=== PATIENT | male | born 1970 | race Hispanic/Latino ===

== ENCOUNTER 2018-03-04 02:51 | Inpatient (IN) | payer SELFPAY ==
--- NOTE | 2018-03-04 03:16 | EDPHYS ---
Physician Documentation [facility] Name: Fransico Cueva Age: 47 yrs Sex: Male : 1970 Arrival Date: 03/04/2018 Time: 02:53 Bed 7 Private MD: NATALIE Physician Yonas Cuellar HPI: 03/04 03:10 This 47 yrs old Male presents to ER via Ambulatory with complaints of Rectal Pain. bing 03:10 This 47 yrs old Male presents to ER via Ambulatory with complaints of Rectal bing Pain. 03:10 The patient presents to the emergency department with cellulitis of the gluteal cleft bing and left gluteus herve, pain in the rectal area, that is moderate. Onset: The symptoms/episode began/occurred 3 day(s) ago. Context: the patient has no known special context relating to the rectal area complaint(s). Modifying factors: The symptoms are alleviated by remaining still, The symptoms are aggravated by bowel movement, movement, sitting position. Associate signs and symptoms: Pertinent positives: abdominal pain in the suprapubic area, right lower quadrant and left lower quadrant, fever. The patient has not experienced similar symptoms in the past. Historical: - Allergies: 03:11 No Known Allergies; ao - Home Meds: 03:11 None [Active]; ao - PMHx: 03:11 None; ao - PSHx: 03:11 None; ao - Immunization history:: Adult Immunizations up to date. - Social history:: Smoking status: Patient/guardian denies using tobacco, Patient/guardian denies using alcohol, IV drugs. - Ebola Screening: : Patient negative for fever greater than or equal to 101.5 degrees Fahrenheit, and additional compatible Ebola Virus Disease symptoms Patient denies exposure to infectious person Patient denies travel to an Ebola-affected area in the 21 days before illness onset. - Family history:: not pertinent. ROS: 03:10 Constitutional: Negative for fever, chills, and weight loss, Eyes: Negative for injury, bing pain, redness, and discharge, ENT: Negative for injury, pain, and discharge, Neck: Negative for injury, pain, and swelling, Cardiovascular: Negative for chest pain, palpitations, and edema, Respiratory: Negative for shortness of breath, cough, wheezing, and pleuritic chest pain, Abdomen/GI: Negative for abdominal pain, nausea, vomiting, diarrhea, and constipation, Back: Negative for injury and pain, : Negative for injury, bleeding, discharge, and swelling, MS/Extremity: Negative for injury and deformity, Neuro: Negative for headache, weakness, numbness, tingling, and seizure, Psych: Negative for depression, anxiety, suicide ideation, homicidal ideation, and hallucinations, Allergy/Immunology: Negative for hives, rash, and allergies, Endocrine: Negative for neck swelling, polydipsia, polyuria, polyphagia, and marked weight changes, Hematologic/Lymphatic: Negative for swollen nodes, abnormal bleeding, and unusual bruising. 03:10 Skin: Positive for erythema, swelling, of the gluteal cleft and left gluteus herve. Exam: 03:10 Constitutional: This is a well developed, well nourished patient who is awake, alert, bing and in no acute distress. Head/Face: Normocephalic, atraumatic. Eyes: Pupils equal round and reactive to light, extra-ocular motions intact. Lids and lashes normal. Conjunctiva and sclera are non-icteric and not injected. Cornea within normal limits. Periorbital areas with no swelling, redness, or edema. ENT: Nares patent. No nasal discharge, no septal abnormalities noted. Tympanic membranes are normal and external auditory canals are clear. Oropharynx with no redness, swelling, or masses, exudates, or evidence of obstruction, uvula midline. Mucous membranes moist. Neck: Trachea midline, no thyromegaly or masses palpated, and no cervical lymphadenopathy. Supple, full range of motion without nuchal rigidity, or vertebral point tenderness. No Meningismus. Chest/axilla: Normal chest wall appearance and motion. Nontender with no deformity. No lesions are appreciated. Cardiovascular: Regular rate and rhythm with a normal S1 and S2. No gallops, murmurs, or rubs. Normal PMI, no JVD. No pulse deficits. Respiratory: Lungs have equal breath sounds bilaterally, clear to auscultation and percussion. No rales, rhonchi or wheezes noted. No increased work of breathing, no retractions or nasal flaring. Abdomen/GI: Soft, non-tender, with normal bowel sounds. No distension or tympany. No guarding or rebound. No evidence of tenderness throughout. Back: No spinal tenderness. No costovertebral tenderness. Full range of motion. Male : Normal genitalia with no discharge or lesions. Skin: Warm, dry with normal turgor. Normal color with no rashes, no lesions, and no evidence of cellulitis. MS/ Extremity: Pulses equal, no cyanosis. Neurovascular intact. Full, normal range of motion. Neuro: Awake and alert, GCS 15, oriented to person, place, time, and situation. Cranial nerves II-XII grossly intact. Motor strength 5/5 in all extremities. Sensory grossly intact. Cerebellar exam normal. Normal gait. Psych: Awake, alert, with orientation to person, place and time. Behavior, mood, and affect are within normal limits. Vital Signs: 03:09 BP 183 / 116; Pulse 103; Resp 16; Temp 99.7(O); Pulse Ox 97% ; Weight 95.25 kg (R); ao Height 5 ft. 5 in. (165.10 cm) (R); Pain 10/10; 04:30 BP 175 / 98; Pulse 99; Resp 16; Pulse Ox 99% on R/A; Pain 0/10; ao 05:30 BP 178 / 108; Pulse 99; Resp 16; Pulse Ox 97% on R/A; Pain 4/10; ao 06:24 BP 171 / 106; Pulse 83; Resp 16; Pulse Ox 100% on R/A; Pain 6/10; ao 03:09 Body Mass Index 34.95 (95.25 kg, 165.10 cm) ao MDM: 02:58 Patient medically screened. [facility] 04:12 Data reviewed: vital signs, nurses notes, lab test result(s), EKG, radiologic studies, [facility] CT scan, plain films. 03/04 03:10 Order name: Basic Metabolic Panel; Complete Time: 05: [facility] 03/04 03:10 Order name: CBC with Diff; Complete Time: 05: [facility] 03/04 03:10 Order name: Ckmb; Complete Time: 05: [facility] 03/04 03:10 Order name: CPK; Complete Time: 05: [facility] 03/04 03:10 Order name: LFT's; Complete Time: 05: [facility] 03/04 03:10 Order name: Magnesium; Complete Time: 05: [facility] 03/04 03:10 Order name: NT PRO-BNP; Complete Time: 05: [facility] 03/04 03:10 Order name: PT-INR; Complete Time: 05:11 [facility] 03/04 03:10 Order name: Ptt, Activated; Complete Time: 05:11 [facility] 03/04 03:10 Order name: Troponin (emerg Dept Use Only); Complete Time: 05:11 [facility] 03/04 03:10 Order name: XRAY Chest (1 view) [facility] 03/04 03:10 Order name: Lipase; Complete Time: 05:11 [facility] 03/04 03:10 Order name: CT Abd/Pelvis - W/Contrast [facility] 03/04 08:12 Order name: CT EDNC 03/04 03:10 Order name: EKG; Complete Time: 03:11 [facility] 03/04 03:10 Order name: Cardiac monitoring; Complete Time: 03:40 [facility] 03/04 03:10 Order name: EKG - Nurse/Tech; Complete Time: 03:40 [facility] 03/04 03:10 Order name: IV Saline Lock; Complete Time: 03:40 [facility] 03/04 03:10 Order name: Labs collected and sent; Complete Time: 03:41 [facility] 03/04 03:10 Order name: O2 Per Protocol; Complete Time: 03:41 [facility] 03/04 03:10 Order name: O2 Sat Monitoring; Complete Time: 03:41 [facility] 03/04 03:21 Order name: CONS Physician Consult EDNC Administered Medications: 03:45 Drug: NS 0.9% 1000 ml Route: IV; Rate: 1 bolus; Site: right antecubital; ao 06:38 Follow up: IV Status: Completed infusion; IV Intake: 100ml ao 03:45 Drug: levofloxacin 750 mg Volume: 150 ml; Route: IVPB; Infused Over: 90 mins; Site: ao right antecubital; 06:40 Follow up: IV Status: Completed infusion; IV Intake: 150ml ao 03:56 Drug: Flagyl 500 mg Volume: 100 ml; Route: IVPB; Rate: 200 ml/hr; Infused Over: 30 ao mins; Site: right antecubital; 06:40 Follow up: IV Status: Completed infusion; IV Intake: 50ml ao 03:57 Drug: morphine 4 mg Route: IVP; Site: right antecubital; ao 06:37 Follow up: Response: No adverse reaction ao 03:57 Drug: Zofran 4 mg Route: IVP; Site: right antecubital; ao 06:37 Follow up: Response: No adverse reaction ao Disposition: 03/04/18 03:15 Hospitalization ordered by Joseph Briceño for Inpatient Admission. Preliminary diagnosis are Cutaneous abscess of buttock - left perirectal, Fever, unspecified, Type 2 diabetes mellitus, Essential (primary) hypertension. - Bed requested for Telemetry/MedSurg (Inpatient). - Status is Inpatient Admission. sv - Condition is Fair. - Problem is new. - Symptoms have improved. UTI on Admission? No Signatures: Dispatcher [employer] EDMS Blade Gonzalez rg2 Elise Adorno RN RN Yonas Machado MD MD cha Ortiz, Alex RN RN ao Corrections: (The following items were deleted from the chart) 03:34 03:15 Hospitalization Ordered by Joseph Briceño MD for Inpatient Admission. Preliminary rg2 diagnosis is Cutaneous abscess of buttock - left perirectal; Fever, unspecified. Bed requested for Telemetry/MedSurg (Inpatient). Status is Inpatient Admission. Condition is Fair. Problem is new. Symptoms have improved. UTI on Admission? No. bing 05:11 03:34 03/04/2018 03:15 Hospitalization Ordered by Joseph Briceño MD for Inpatient bing Admission. Preliminary diagnosis is Cutaneous abscess of buttock - left perirectal; Fever, unspecified. Bed requested for Telemetry/MedSurg (Inpatient). Status is Inpatient Admission. Condition is Fair. Problem is new. Symptoms have improved. UTI on Admission? No. rg2 05:12 05:11 03/04/2018 03:15 Hospitalization Ordered by Joseph Briceño MD for Inpatient bing Admission. Preliminary diagnosis is Cutaneous abscess of buttock - left perirectal; Fever, unspecified; Type 2 diabetes mellitus. Bed requested for Telemetry/MedSurg (Inpatient). Status is Inpatient Admission. Condition is Fair. Problem is new. Symptoms have improved. UTI on Admission? No. bing 08:21 05:12 03/04/2018 03:15 Hospitalization Ordered by Joseph Briceño MD for Inpatient sv Admission. Preliminary diagnosis is Cutaneous abscess of buttock - left perirectal; Fever, unspecified; Type 2 diabetes mellitus; Essential (primary) hypertension. Bed requested for Telemetry/MedSurg (Inpatient). Status is Inpatient Admission. Condition is Fair. Problem is new. Symptoms have improved. UTI on Admission? No. bing
--- NOTE | 2018-03-04 03:16 | ER ---
Nurse's Notes [facility] Name: Fransico Cueva Age: 47 yrs Sex: Male : 1970 Arrival Date: 03/04/2018 Time: 02:53 Bed 7 Private MD: Diagnosis: Cutaneous abscess of buttock-left perirectal;Fever, unspecified;Type 2 diabetes mellitus;Essential (primary) hypertension Presentation: 03/04 03:06 Presenting complaint: Patient states: Rectal pain that started two days ago. Patient ao states that pain is moving towards the left side of the abdomen. Pain describes as pressure in 10/10 pain scale. Transition of care: patient was not received from another setting of care. Onset of symptoms was March 03, 2018 at 06:00. Risk Assessment: Do you want to hurt yourself or someone else? Patient reports no desire to harm self or others. Initial Sepsis Screen: Does the patient meet any 2 criteria? No. Patient's initial sepsis screen is negative. Does the patient have a suspected source of infection? No. Patient's initial sepsis screen is negative. Care prior to arrival: None. 03:06 Method Of Arrival: Ambulatory ao 03:06 Acuity: [place] 3 ao Historical: - Allergies: 03:11 No Known Allergies; ao - Home Meds: 03:11 None [Active]; ao - PMHx: 03:11 None; ao - PSHx: 03:11 None; ao - Immunization history:: Adult Immunizations up to date. - Social history:: Smoking status: Patient/guardian denies using tobacco, Patient/guardian denies using alcohol, IV drugs. - Ebola Screening: : Patient negative for fever greater than or equal to 101.5 degrees Fahrenheit, and additional compatible Ebola Virus Disease symptoms Patient denies exposure to infectious person Patient denies travel to an Ebola-affected area in the 21 days before illness onset. - Family history:: not pertinent. Screenin:00 Abuse screen: Denies threats or abuse. Denies injuries from another. Nutritional ao screening: No deficits noted. Tuberculosis screening: No symptoms or risk factors identified. Fall Risk None identified. Assessment: 03:05 General: Appears in no apparent distress. comfortable, Behavior is calm, cooperative, ao appropriate for age. Pain: Complains of pain in buttocks Pain radiates to Left side and abdoment. Neuro: Level of Consciousness is awake, alert, obeys commands, Oriented to person, place, time, situation, Appropriate for age Moves all extremities. Speech is normal, Facial symmetry appears normal. Cardiovascular: Capillary refill < 3 seconds Patient's skin is warm and dry. Respiratory: Airway is patent Respiratory effort is even, unlabored, Respiratory pattern is regular, symmetrical. GI: Abdomen is distended, obese. GI: Reports nausea, Rectal pain. : No signs and/or symptoms were reported regarding the genitourinary system. EENT: No signs and/or symptoms were reported regarding the EENT system. Derm: No signs and/or symptoms reported regarding the dermatologic system. Musculoskeletal: Circulation, motion, and sensation intact. Range of motion:. 04:15 Reassessment: Patient appears in no apparent distress at this time. Patient and/or ao family updated on plan of care and expected duration. Pain level reassessed. Patient is alert, oriented x 3, equal unlabored respirations, skin warm/dry/pink. 04:30 Reassessment: Patient was done with contrast. CT was notified. ao 05:34 Reassessment: Patient appears in no apparent distress at this time. Patient and/or ao family updated on plan of care and expected duration. Pain level reassessed. Patient is alert, oriented x 3, equal unlabored respirations, skin warm/dry/pink. Patient to be taken to her room after CT is clear as ordered by Dr Cuellar. 06:24 Reassessment: Patient appears in no apparent distress at this time. Patient and/or ao family updated on plan of care and expected duration. Pain level reassessed. Patient is alert, oriented x 3, equal unlabored respirations, skin warm/dry/pink. Waiting on CT report to called report. Vital Signs: 03:09 BP 183 / 116; Pulse 103; Resp 16; Temp 99.7(O); Pulse Ox 97% ; Weight 95.25 kg (R); ao Height 5 ft. 5 in. (165.10 cm) (R); Pain 10/10; 04:30 BP 175 / 98; Pulse 99; Resp 16; Pulse Ox 99% on R/A; Pain 0/10; ao 05:30 BP 178 / 108; Pulse 99; Resp 16; Pulse Ox 97% on R/A; Pain 4/10; ao 06:24 BP 171 / 106; Pulse 83; Resp 16; Pulse Ox 100% on R/A; Pain 6/10; ao 03:09 Body Mass Index 34.95 (95.25 kg, 165.10 cm) ao ED Course: 02:53 Patient arrived in ED. ds1 02:58 Yonas Cuellar MD is Attending Physician. bing 03:05 Silvino Crenshaw RN is Primary Nurse. ao 03:09 Triage completed. ao 03:10 Arm band placed on right wrist. Patient placed in an exam room, on a stretcher, on ao pulse oximetry, Patient notified of wait time. 03:14 Joseph Briceño MD is Hospitalizing Provider. bing 03:19 X-ray completed. Portable x-ray completed in exam room. Patient tolerated procedure kw well. 03:20 XRAY Chest (1 view) In Process Unspecified. EDMS 03:45 Inserted saline lock: 20 gauge in right antecubital area, using aseptic technique. ao Blood collected. 06:14 CT completed. Patient tolerated procedure well. Patient moved to CT via wheelchair. Patient moved back from CT. 07:05 Patient has correct armband on for positive identification. Report given to Casper Olivares RN. Report has been called. Patient to be taken to his room after CT report in the ED. 07:06 No provider procedures requiring assistance completed. Patient admitted, IV remains in ao place. Administered Medications: 03:45 Drug: NS 0.9% 1000 ml Route: IV; Rate: 1 bolus; Site: right antecubital; ao 06:38 Follow up: IV Status: Completed infusion; IV Intake: 100ml ao 03:45 Drug: levofloxacin 750 mg Volume: 150 ml; Route: IVPB; Infused Over: 90 mins; Site: ao right antecubital; 06:40 Follow up: IV Status: Completed infusion; IV Intake: 150ml ao 03:56 Drug: Flagyl 500 mg Volume: 100 ml; Route: IVPB; Rate: 200 ml/hr; Infused Over: 30 ao mins; Site: right antecubital; 06:40 Follow up: IV Status: Completed infusion; IV Intake: 50ml ao 03:57 Drug: morphine 4 mg Route: IVP; Site: right antecubital; ao 06:37 Follow up: Response: No adverse reaction ao 03:57 Drug: Zofran 4 mg Route: IVP; Site: right antecubital; ao 06:37 Follow up: Response: No adverse reaction ao Intake: 06:38 IV: 100ml; Total: 100ml. ao 06:40 IV: 150ml; Total: 250ml. ao 06:40 IV: 50ml; Total: 300ml. ao Outcome: 03:15 Decision to Hospitalize by Provider. bing 07:07 Admitted to Tele accompanied by tech, room 428, with oxygen, with chart, Report called ao to LUCRETIA Caba 07:07 Condition: stable 07:07 Instructed on the need for admit. 08:21 Patient left the ED. sv Signatures: Dispatcher [employer] Elise Boo RN RN Yonas Machado MD MD cha Hagler, Ervin eh Sanford, Crystal ds1 Angelica Vaca Alex, RN RN ao
[2018-03-04] MEDS ORDERED: MORPHINE 4 MG/ML SYR ONE ×2 (03:50→06:47)
[2018-03-04] MEDS ORDERED: NA CHLORIDE 0.9% 1,000 ML ONE (03:50)
[2018-03-04] MEDS ORDERED: Levofloxacin 750mg IV 750 MG/150 ML BAG IV ONE (03:50)
[2018-03-04] MEDS ORDERED: METRONIDAZOLE 500mg IVPB 500 MG/100 ML BAG IV ONE ×3 (03:50→11:15)
[2018-03-04] MEDS ORDERED: ONDANSETRON 4 MG/2 ML VIAL ONE (03:50)
[2018-03-04 04:08] LABS: Absolute Lymphocytes (CBC) 2.5 K/uL (0.7-4.9); Absolute Monocytes 0.9 K/uL (0.1-1.3); Absolute Neutrophil 9.1 K/uL (1.8-8.0); Basophils % 0.4 % (0-1.3); Eosinophils % 0.5 % (0-4.4); Hematocrit 46.8 % (39.6-49.0); Lymphocytes % 19.7 % (15.3-44.8); MCH 30.6 pg (27.0-35.0); MCV 87.5 fL (80-100); MPV 8.6 fL (7.6-11.3); Monocytes % 7.1 % (3.3-12.3); RBC Red Blood Cell Count 5.35 M/uL (4.33-5.43)
[2018-03-04 04:29] LABS: Bilirubin Direct 0.2 mg/dL (0-0.2); Bilirubin Total 0.9 mg/dL (0.2-1.0); CKMB Creatine Kinase MB 1.2 ng/mL (0.3-3.6); Potassium 3.6 mmol/L (3.5-5.1); Protein, Total 8.2 g/dL (6.4-8.2)
[2018-03-04] MEDS ORDERED: D50W 25 GM/50 ML SYRINGE IV PRN (05:30)
[2018-03-04] MEDS ORDERED: GLUCAGON 1 MG/VIAL IM PRN (05:30)
--- NOTE | 2018-03-04 05:41 | P.HP ---
Certification for Inpatient Patient admitted to: Inpatient With expected LOS: >2 Midnights Practitioner: I am a practitioner with admitting privileges, knowledge of patient current condition, hospital course, and medical plan of care. Services: Services provided to patient in accordance with Admission requirements found in Title 42 Section 412.3 of the Code of Federal Regulations Patient History Date of Service: 03/04/18 Reason for admission: perirectal abscess History of Present Illness: Mr Oscar Cueva is a 47 years old male with history of obesity, who start about 3 days ago with in perianal area. He noticed a bump in his left perianal area which has been increasing in size. His pain is constant, 9/10 of intensity. He states that has had subjective fever. He did not noticed any drainage yet. He has never had this problem before. Lab work remarkable for leukocytosis 12.7K, Temp 99.7F, HR 103, BP 183/116. Home medications list reviewed: Yes - Past Medical/Surgical History -: obesity Past Surgical History: Reviewed- Non-Contributory - Family History Family History: Reviewed- Non-Contributory - Social History Smoking Status: Never smoker Alcohol use: Yes CD- Drugs: No Place of Residence: Home Review of Systems 10-point ROS is otherwise unremarkable Physical Examination - Physical Exam General: Alert, In no apparent distress HEENT: Atraumatic, PERRLA, Mucous membr. moist/pink, EOMI, Sclerae nonicteric Neck: Supple, 2+ carotid pulse no bruit, No LAD, Without JVD or thyroid abnormality Respiratory: Clear to auscultation bilaterally, Normal air movement Cardiovascular: Regular rate/rhythm, Normal S1 S2 Gastrointestinal: Normal bowel sounds, No tenderness Musculoskeletal: No tenderness Integumentary: No rashes Neurological: Normal gait, Normal speech, Normal strength at 5/5 x4 extr, Normal tone, Normal affect Lymphatics: No axilla or inguinal lymphadenopathy Male Exam - Male Exam Anus & perineum: Other (there is a indurated area, painful to palpate on his left perianal region.) Assessment and Plan - Problems (Diagnosis) (1) Perianal abscess Current Visit: Yes Status: Acute (2) HTN (hypertension) Current Visit: Yes Status: Acute Qualifiers: Hypertension type: unspecified Qualified Code(s): I10 - Essential (primary ) hypertension (3) Obesity Current Visit: Yes Status: Acute Qualifiers: Obesity type: unspecified obesity type Obesity classification: unspecified obesity classification Serious obesity comorbidity presence: unspecified whether serious comorbidity present Qualified Code(s): E66.9 - Obesity, unspecified - Plan The patient will be admitted to the hospital due to perianal abscess. CT pelvic area is still pending. Will start empiric antibiotic treatment, consult Surgery team. Will keep NPO in case he needs surgical procedure this morning. - Advance Directives Does patient have a Living Will: No Does patient have a Durable POA for Healthcare: No - Code Status/Comfort Care Code Status Assessed: Yes Code Status: Full Code
[2018-03-04] MEDS ORDERED: Morphine 2 MG/2 ML SYR IV PRN (06:31)
[2018-03-04] MEDS ORDERED: MORPHINE 4 MG/ML SYR IV PRN (07:26)
[2018-03-04] MEDS: INSULIN -REGULAR HUMAN 50 UNIT/0.5 ML ML SQ SCH ×4 (07:30→21:09)
--- NOTE | 2018-03-04 08:09 | P.PN ---
Subjective Date of Service: 03/04/18 Primary Care Provider: none Chief Complaint: perirectal abscess Subjective: Other (Patient doing well this time. Pain well controlled) Physical Examination - Physical Exam General: Alert, In no apparent distress, Oriented x3, Cooperative HEENT: Atraumatic Neck: Supple Respiratory: Clear to auscultation bilaterally, Normal air movement Cardiovascular: Normal pulses, Regular rate/rhythm Gastrointestinal: Normal bowel sounds, Non-distended, No masses, No rebound, No guarding Musculoskeletal: No tenderness, No warmth Integumentary: Other (Induration noted to the left rectal area to the buttocks.) Neurological: Normal speech, Normal strength at 5/5 x4 extr, Normal tone, Normal affect - Studies Medications List Reviewed: Yes Assessment & Plan - Problems (Diagnosis) (1) Diabetes mellitus Current Visit: Yes Status: Acute Plan: Patient with new diagnosis of diabetes. Will check A1c. Will provide sliding scale. Qualifiers: Diabetes mellitus type: type 2 Diabetes mellitus prison insulin use: without prison use Diabetes mellitus complication status: with skin complications Diabetes mellitus complication detail: with other skin complication Qualified Code(s): E11.628 - Type 2 diabetes mellitus with other skin complications (2) HTN (hypertension) Current Visit: Yes Status: Acute Plan: New diagnosis of hypertension. Lisinopril started. Will provide medication IV as needed. Will adjust medication for better control. Qualifiers: Hypertension type: unspecified Qualified Code(s): I10 - Essential (primary ) hypertension (3) Obesity Current Visit: Yes Status: Chronic Plan: Will calculate BMI and address lifestyle modification education. Qualifiers: Obesity type: unspecified obesity type Obesity classification: unspecified obesity classification Serious obesity comorbidity presence: unspecified whether serious comorbidity present Qualified Code(s): E66.9 - Obesity, unspecified (4) Perianal abscess Current Visit: Yes Status: Acute Plan: CT scan shows perianal abscess. Spoke with surgery. Patient be taken to the OR for debridement. Patient on Levaquin and vancomycin. Will check pro calcitonin level. Cultures will be obtained. Pharmacy to adjust medication. Discharge Plan: Home Plan to discharge in: Greater than 2 days - Code Status/Comfort Care Code Status Assessed: Yes (Patient full code.) Time Spent Managing Pts Care (In Minutes): 55
--- NOTE | 2018-03-04 08:11 | RAD REPORT ---
EXAM DESCRIPTION: CTAbdomen Pelvis W Contrast - 03/04/2018 6:17 am CLINICAL HISTORY: Abdominal pain. ABD PAIN COMPARISON: No comparisons TECHNIQUE: Biphasic CT imaging of the abdomen and pelvis was performed with 100 ml non-ionic IV cont rast. All CT scans are performed using dose optimization technique as appropriate and may include automated exposure control or mA/KV adjustment according to patient size. FINDINGS: The lung bases are clear. Diffuse fatty liver infiltration is seen. No focal lesion is detected. No intrahepatic biliary dilata tion. The spleen, pancreas, adrenal glands and kidneys show no acute process. Small nonobstructing le ft renal calculus. No bowel obstruction, free air, free fluid or abscess. The appendix is normal. Left thick-walled per irectal abscess is identified with the central fluid component measuring 22 x 16 mm. Skin thickening and subcutaneous fat stranding is present involving the left buttock region. A few mildly prominent l ymph nodes in both inguinal regions seen. No suspicious bony findings. IMPRESSION: Thick walled left perirectal abscess is identified (22 x 16 mm). Punctate left renal stone without hydronephrosis. Fatty liver.
--- NOTE | 2018-03-04 08:36 | EKG ---
Test Date: 2018-03-04 Test Time: 03:36:00 Fund Raiser: JEANINE MEASUREMENT RESULTS: Intervals: Rate: 95 NE: 162 QRSD: 78 QT: 352 QTc: 442 [place]: P: 28 NE: 162 QRS: -20 T: 69 INTERPRETIVE STATEMENTS: Normal sinus rhythm Normal ECG No previous ECG available for comparison Electronically Signed On 03-04-18 08:35:06 CDT by Yinka Mendiola
[2018-03-04] MEDS ORDERED: TRAMADOL HCL 50 MG TAB PO PRN (08:37)
[2018-03-04] MEDS ORDERED: ONDANSETRON 4 MG/2 ML VIAL IV PRN (08:37)
[2018-03-04] MEDS ORDERED: ACETAMINOPHEN 500 MG TAB PO PRN (08:37)
[2018-03-04] MEDS ORDERED: METOPROLOL TARTRATE 5 MG/5 ML INJ IV PRN (08:37)
--- NOTE | 2018-03-04 08:59 | RAD REPORT ---
EXAM DESCRIPTION: RAD - Chest Single View - 03/04/2018 3:25 am CLINICAL HISTORY: COUGH Chest pain. COMPARISON: No comparisons FINDINGS: Portable technique limits examination quality. The lungs are grossly clear. The heart is normal in size. No displaced fractures. IMPRESSION: No acute intrathoracic process suspected.
[2018-03-04] MEDS ORDERED: LISINOPRIL 10 MG TAB PO SCH ×2 (09:00→21:00)
[2018-03-04 09:49] LABS: Thyroid Stimulating Hormone 1.88 uIU/mL (0.36-3.74)
[2018-03-04] MEDS: VANCOMYCIN 1.75 GM in NA CHLORIDE 0.9% 500 ML IVPB SCH ×3 (10:00→23:24)
[2018-03-04] MEDS ORDERED: LIDOCAINE 1% MPF 5 ML VIAL ONE (11:08)
[2018-03-04] MEDS ORDERED: FENTANYL CITR 100 MCG/2 ML ONE ×2 (11:08→11:50)
[2018-03-04] MEDS ORDERED: PROPOFOL 200 MG/20 ML VIAL IV ONE (11:08)
[2018-03-04] MEDS ORDERED: MIDAZOLAM HCL 2 MG/2 ML INJ ONE (11:08)
[2018-03-04] MEDS ORDERED: CEFOXITIN/SWI 1gm 1 GM/10 ML SYR IV ONE (11:15)
[2018-03-04] MEDS ORDERED: HYDRALAZINE HCL 20 MG/ML VIAL ONE (11:49)
[2018-03-04] MEDS ORDERED: NS 0.9% VIAL 10 ML ONE (11:51)
[2018-03-04] MEDS ORDERED: ONDANSETRON HCL 40 MG/20 ML VIAL ONE (11:52)
[2018-03-04] MEDS ORDERED: KETOROLAC 30 MG/ML INJ ONE (11:52)
--- NOTE | 2018-03-04 11:52 | P.OP ---
Preoperative diagnosis: Left Sweta-rectal Abscess Postoperative diagnosis: same Primary procedure: EUA, Rigid Procto, I and D and Debridement Left Sweta-rectal Abscess Anesthesia: gen Estimated blood loss: min Specimen: pus Findings: as above Complications: None Transferred to: Recovery Room Condition: Good
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
[2018-03-04] MEDS: MEPERIDINE HCL 50 MG/ML AMP ONE ×2 (12:44→12:50)
[2018-03-04 15:32] VITALS: BMI 33.8
[2018-03-04] MEDS: METFORMIN HCL 500 MG TAB PO SCH (16:35)
[2018-03-04] MEDS ORDERED: PNEUMOCOCCAL VACCINE 0.5 ML IMVAC ONE (17:00)
[2018-03-04] MEDS ORDERED: POTASSIUM 25 MEQ EFFERV TAB PO ONE (18:30)
[2018-03-04] MEDS: NA CHLORIDE 0.9% 1,000 ML IV SCH ×3 (18:37→23:32)
[2018-03-04] MEDS ORDERED: CARVEDILOL 6.25 MG TAB PO SCH (21:00)
[2018-03-04] MEDS ORDERED: INSULIN DETEMIR 100 UNIT/1 ML INSULIN SQ SCH (21:00)
[2018-03-04] MEDS ORDERED: ATORVASTATIN 40 MG TAB PO SCH (21:00)
--- NOTE | 2018-03-04 22:44 | OP ---
Date of Procedure: 03/04/2018 Surgeon: Yasmany Up MD Preoperative Diagnosis: Left perirectal abscess. Postoperative Diagnosis: Left perirectal abscess. Procedure: Exam under anesthesia, rigid proctoscopy, incision and drainage, and debridement of left perirectal abscess. Estimated Blood Loss: Minimal. Specimen: Pus. Finding: As above. Anesthesia: General. Complications: None. Disposition: The patient tolerated the procedure in stable condition and to Recovery in good general condition. Procedure In Detail: The patient was brought to the OR and placed in supine position. General anest hesia was begun. The patient placed in lithotomy position. Prepped and draped in usual sterile fash ion. Exam under anesthesia revealed a tender fluctuant mass in the left posterior perirectal area, a nd rigid proctoscopy revealed lot of stool, I was unable to see any fistula or any other evidence of disease. Then patient was injected with Marcaine 0.5% and 3 cm incision was made over the most fluct uant part. Pus was evacuated. Loculation was broken up. Necrotic tissue debrided. Wound irrigated. Bleeding controlled with cautery. Wet-to-dry normal saline dressing change applied. The patient tolerated the procedure in stable condition and taken to Recovery in goo d general condition. /MODL Voice ID: [id number] Report ID: [id number]
[2018-03-05 02:52] VITALS: O2SAT 95
[2018-03-05] MEDS: HYDROCODONE/APAP 7.5/325 MG TAB PO PRN ×2 (03:40→10:40)
[2018-03-05] MEDS ORDERED: Levofloxacin 750mg IV 750 MG/150 ML BAG IV SCH (04:00)
[2018-03-05 04:33] LABS: Absolute Monocytes 1.1 K/uL (0.1-1.3); Basophils % 0.2 % (0-1.3); Eosinophils % 0.6 % (0-4.4); Hematocrit 38.6 % (39.6-49.0); Lymphocytes % 15.1 % (15.3-44.8); MCH 30.7 pg (27.0-35.0); MCV 87.7 fL (80-100); MPV 8.5 fL (7.6-11.3); Monocytes % 8.7 % (3.3-12.3)
[2018-03-05] MEDS: NA CHLORIDE 0.9% 1,000 ML IV SCH (04:37)
[2018-03-05 04:58] LABS: BUN Blood Urea Nitrogen 15 mg/dL (7-18); Bicarbonate 27 mmol/L (21-32); Glucose Level 152 mg/dL (74-106); Magnesium 1.7 mg/dL (1.8-2.4); Potassium 3.5 mmol/L (3.5-5.1); Sodium Level 137 mmol/L (136-145)
[2018-03-05] MEDS ORDERED: POTASSIUM CL SA 10 MEQ TAB PO ONE (06:04)
[2018-03-05] MEDS ORDERED: Magnesium Sulfate 1gm IVPB 1 GM/50 ML BAG IV ONE ×2 (06:05→06:16)
[2018-03-05] MEDS ORDERED: PANTOPRAZOLE 40MG TABLET PO SCH (06:30)
[2018-03-05] MEDS: INSULIN -REGULAR HUMAN 50 UNIT/0.5 ML ML SQ SCH ×2 (07:30→12:12)
[2018-03-05] MEDS: METFORMIN HCL 500 MG TAB PO SCH (08:29)
[2018-03-05] MEDS: CARVEDILOL 3.125 MG TAB PO SCH ×2 (08:30→12:13)
[2018-03-05] MEDS: VANCOMYCIN 1.75 GM in NA CHLORIDE 0.9% 500 ML IVPB SCH (10:17)
[2018-03-05 12:07] VITALS: BP 141/73; TEMP 98.3
--- NOTE | 2018-03-05 12:36 | P.DS ---
Admission Date: 03/04/18 Discharge Date: 03/05/18 Primary Care Provider: none Disposition: ROUTINE DISCHARGE Discharge Condition: GOOD Reason for Admission: perirectal abscess Consultations: Surgery-Dr. Up Procedures: CT scan: COMPARISON: No comparisons TECHNIQUE: Biphasic CT imaging of the abdomen and pelvis was performed with 100 ml non-ionic IV contrast. All CT scans are performed using dose optimization technique as appropriate and may include automated exposure control or mA/KV adjustment according to patient size. FINDINGS: The lung bases are clear. Diffuse fatty liver infiltration is seen. No focal lesion is detected. No intrahepatic biliary dilatation. The spleen, pancreas, adrenal glands and kidneys show no acute process. Small nonobstructing left renal calculus. No bowel obstruction, free air, free fluid or abscess. The appendix is normal. Left thick-walled perirectal abscess is identified with the central fluid component measuring 22 x 16 mm. Skin thickening and subcutaneous fat stranding is present involving the left buttock region. A few mildly prominent lymph nodes in both inguinal regions seen. No suspicious bony findings. IMPRESSION: Thick walled left perirectal abscess is identified (22 x 16 mm). Punctate left renal stone without hydronephrosis. Fatty liver. Surgery: Date of Procedure: 03/04/2018 Surgeon: Yasmany Up MD Preoperative Diagnosis: Left perirectal abscess. Postoperative Diagnosis: Left perirectal abscess. Procedure: Exam under anesthesia, rigid proctoscopy, incision and drainage, and debridement of left perirectal abscess. Estimated Blood Loss: Minimal. Specimen: Pus. Finding: As above. Anesthesia: General. Complications: None. - Problems (1) Diabetes mellitus Onset Date: 03/04/18 Current Visit: Yes Status: Acute Qualifiers: Diabetes mellitus type: type 2 Diabetes mellitus selling specialist insulin use: without mcc use Diabetes mellitus complication status: with skin complications Diabetes mellitus complication detail: with other skin complication Qualified Code(s): E11.628 - Type 2 diabetes mellitus with other skin complications (2) HTN (hypertension) Onset Date: 03/04/18 Current Visit: Yes Status: Acute Qualifiers: Hypertension type: essential hypertension Qualified Code(s): I10 - Essential (primary) hypertension (3) Obesity Onset Date: 03/04/18 Current Visit: Yes Status: Chronic Qualifiers: Obesity type: unspecified obesity type Obesity classification: adult class 1 (BMI 30 - 34.9) Serious obesity comorbidity presence: with serious comorbidity Body mass index: BMI 30.0-30.9 Qualified Code(s): E66.9 - Obesity, unspecified; Z68.30 - Body mass index (BMI) 30.0-30.9, adult (4) Abscess, perirectal Current Visit: Yes Status: Acute (5) Renal calculi Current Visit: Yes Status: Chronic Brief History of Present Illness: 47-year-old male presented with left rectal pain. Patient had erythema to the left buttocks region. Patient evaluated in emergency room. Patient found to have left perirectal abscess, confirmed on CT. Patient was admitted for treatment. Surgery consulted. Hospital Course: During the course of his stay patient was evaluated by surgery for left perirectal abscess. CT scan showed left perirectal abscess about 22 x 16 mm in size. Patient had incision, drainage and debridement of the abscess. Patient tolerated procedure well. No complications noted. So far cultures are negative. Patient will be discharged home to continue with wound care. Patient is to clean wound twice daily with normal saline. Patient is to pack the area with gauze and cover with gauze. At discharge he will continue with Cipro 500 mg 1 pill twice daily and Flagyl 500 mg 1 pill 3 times a day for 10 5th. Patient will follow up with surgery in 1 week to monitor his care. Prior to discharge family will be taught to help with dressing changes. A limited supply of tramadol 50 mg 1 pill 3 times a day as needed for pain will be provided. Patient was found to have new diagnosis of diabetes. Hemoglobin A1c 10.2. Patient will require strict lifestyle modification education. The patient understands. At discharge patient will continue with Glucophage 1000 mg 1 pill twice daily. Recommendation is to maintain blood sugars less 140 fasting and less than 200 after meals. Further adjustment can be done by his PCP. Patient will be provided a list of PCPs in the area so that he can establish care and continue to monitor his diabetes. Patient also found to have hypertension. Blood pressure stable with medication. At discharge he will continue with carvedilol 3.25 mg 1 pill twice daily and lisinopril 10 mg daily. Recommendation is to maintain blood pressures less 150/80. Further adjustment can be done by his PCP. Patient also found to have hyperlipidemia. LDL 176. At discharge he will continue with Lipitor 40 mg daily. This can be further monitored and addressed by his PCP. Patient may continue with aspirin 81 mg daily. Vital Signs/Physical Exam: Temp Pulse Resp BP Pulse Ox 98.3 F 71 18 141/73 H 98 03/05/18 12:00 03/05/18 12:13 03/05/18 12:00 03/05/18 12:13 03/05/18 12:00 General: Alert, In no apparent distress, Oriented x3, Cooperative HEENT: Atraumatic Neck: Supple Respiratory: Clear to auscultation bilaterally, Normal air movement Cardiovascular: Normal pulses, Regular rate/rhythm Gastrointestinal: Normal bowel sounds, Soft and benign, Non-distended, No tenderness, No masses, No rebound, No guarding Musculoskeletal: No erythema, No tenderness, No warmth Integumentary: Other (Less erythema to the left rectal region. Packing in place ) Neurological: Normal speech, Normal strength at 5/5 x4 extr, Normal tone Laboratory Data at Discharge: WBC 13.2 K/uL (4.3-10.9) H 03/05/18 03:50 Hgb 13.5 g/dL (13.6-17.9) L D 03/05/18 03:50 Hct 38.6 % (39.6-49.0) L D 03/05/18 03:50 Plt Count 221 K/uL (152-406) 03/05/18 03:50 PT 11.8 SECONDS (9.5-12.5) 03/04/18 03:40 INR 1.00 03/04/18 03:40 APTT 32.8 SECONDS (24.3-36.9) 03/04/18 03:40 Sodium 137 mmol/L (136-145) 03/05/18 03:50 Potassium 3.5 mmol/L (3.5-5.1) 03/05/18 03:50 BUN 15 mg/dL (7-18) 03/05/18 03:50 Creatinine 0.90 mg/dL (0.55-1.3) 03/05/18 03:50 Glucose 152 mg/dL (74-106) H 03/05/18 03:50 Magnesium 1.7 mg/dL (1.8-2.4) L 03/05/18 03:50 Total Bilirubin 0.9 mg/dL (0.2-1.0) 03/04/18 03:40 AST 18 U/L (15-37) 03/04/18 03:40 ALT 56 U/L (12-78) 03/04/18 03:40 Alkaline Phosphatase 129 U/L (45-117) H 03/04/18 03:40 Triglycerides 145 mg/dL (<150) 03/04/18 09:04 Cholesterol 245 mg/dL (<200) H 03/04/18 09:04 HDL Cholesterol 40 mg/dL (40-60) 03/04/18 09:04 Cholesterol/HDL Ratio 6.13 03/04/18 09:04 Lipase 176 U/L (73-393) 03/04/18 03:40 Home Medications: Atorvastatin Calcium [Lipitor] 40 mg PO BEDTIME #30 tab 03/05/18 Carvedilol [Coreg*] 3.125 mg PO BID #60 tab 03/05/18 Ciprofloxacin HCl [Cipro 500 MG Tablet] 500 mg PO BID #20 tab 03/05/18 Metformin HCl 1,000 mg PO BID #60 tablet 03/05/18 Tramadol HCl [Ultram] 50 mg PO TID PRN #15 tablet 03/05/18 metroNIDAZOLE [Flagyl] 500 mg PO Q8H #30 tablet 03/05/18 New Medications: Atorvastatin Calcium [Lipitor] 40 mg PO BEDTIME #30 tab Carvedilol [Coreg*] 3.125 mg PO BID #60 tab Ciprofloxacin HCl [Cipro 500 MG Tablet] 500 mg PO BID #20 tab Metformin HCl 1,000 mg PO BID #60 tablet metroNIDAZOLE [Flagyl] 500 mg PO Q8H #30 tablet Tramadol HCl [Ultram] 50 mg PO TID PRN #15 tablet PRN Reason: Pain Patient Discharge Instructions: 1. Patient will need a follow up with a PCP in the area to establish care and follow up this hospitalization. 2. Patient presented with left perirectal abscess. Patient is seen by surgery. Patient had incision, drainage and debridement of the abscess. Patient tolerated procedure well. No complications noted. So far cultures are negative. Patient will be discharged home to continue with wound care as per surgery. Patient will continue with Sitz bath. Patient is to clean wound twice daily with normal saline. Patient is to pack the area with gauze and cover with gauze. At discharge he will continue with Cipro 500 mg 1 pill twice daily and Flagyl 500 mg 1 pill 3 times a day for 10 days. Patient will follow up with surgery in 1 week to monitor his care. Prior to discharge family will be taught to help with dressing changes. A limited supply of tramadol 50 mg 1 pill 3 times a day as needed for pain will be provided. 3. Patient was found to have new diagnosis of diabetes. Hemoglobin A1c 10.2. Patient will require strict lifestyle modification education. The patient understands. At discharge patient will continue with Glucophage 1000 mg 1 pill twice daily. Recommendation is to maintain blood sugars less 140 fasting and less than 200 after meals. Further adjustment can be done by his PCP. Patient will be provided a list of PCPs in the area so that he can establish care and continue to monitor his diabetes. 4. Patient also found to have hypertension. Blood pressure stable with medication. At discharge he will continue with carvedilol 3.25 mg 1 pill twice daily and lisinopril 10 mg daily. Recommendation is to maintain blood pressures less 150/80. Further adjustment can be done by his PCP. 5. Patient also found to have hyperlipidemia. LDL 176. At discharge he will continue with Lipitor 40 mg daily. This can be further monitored and addressed by his PCP. 6. Patient may continue with aspirin 81 mg daily. Diet: ADA Activity: Ad ken Followup: Yasmany Up MD [ACTIVE - CAN ADMIT] - 1-2 Weeks Time spent managing pt's care (in minutes): 55
[2018-03-05] MEDS ORDERED: LISINOPRIL 10 MG TAB PO SCH (21:00)
== END 2018-03-05 14:29 | disposition home or self-care (01) | DRG 346 ==
LOC: ER 02:51 → ERHOLD 03:17 → 4TH 05:38
PROVIDERS: ADMIT Internal Medicine; ATTEND Family Medicine
PROC: 0DJD8ZZ Inspection of Lower Intestinal Tract, Via Natural or Artificial Opening Endoscopic (ICD-10-PCS; 2018-03-04)
PROC: 0D9P0ZX Drainage of Rectum, Open Approach, Diagnostic (ICD-10-PCS; principal; 2018-03-04 09:00)
DX: K61.1 Rectal abscess (principal); E11.628 Type 2 diabetes mellitus with other skin complications; I10 Essential (primary) hypertension; E66.9 Obesity, unspecified; Z68.30 Body mass index [BMI] 30.0-30.9, adult; E78.5 Hyperlipidemia, unspecified; Z79.84 Long term (current) use of oral hypoglycemic drugs; Z79.82 Long term (current) use of aspirin; N20.0 Calculus of kidney
CPT/HCPCS: 36415; 71045; 74177; 80048; 80061; 80076; 82550; 82553; 82962; 83036; 83690; 83735; 83880; 84145; 84439; 84443; 84484; 85025; 85610; 85730; 87070; 87075; 87077; 87185; 87186; 87205; 90670; 93005; 96365; 96366; 96375; 99285; G0009; J0360; J2175; J2250; J2270; J2405; J3010; J3475; J7030; Q9967

== ENCOUNTER 2020-11-26 17:04 | Emergency (ER) | payer SELFPAY ==
[2020-11-26 17:29] LABS: Absolute Lymphocytes (CBC) 2.7 K/uL (0.7-4.9); Basophils % 0.5 % (0-1.3); Hematocrit 43.2 % (39.6-49.0); Lymphocytes % 22.7 % (15.3-44.8); MPV 7.6 fL (7.6-11.3); RBC Red Blood Cell Count 4.88 M/uL (4.33-5.43)
--- NOTE | 2020-11-26 17:29 | ER ---
Nurse's Notes [facility] Name: Fransico Cueva Age: 50 yrs Sex: Male : 1970 Arrival Date: 11/26/2020 Time: 17:06 Bed 4 Private MD: Diagnosis: Nontraumatic subarachnoid hemorrhage, unspecified Presentation: 11/26 17:06 Chief complaint: EMS states: pt was found on bathroom floor at restaurant, EMS reports aa5 upon their arrival pt was bending over bathroom sink actively vomiting, pt was confused. Pt currently A \T\ O x person, unable to follow commands. 17:06 Coronavirus screen: At this time, unable to obtain information related to travel aa5 outside the [place] Ebola Screen: Patient negative for fever greater than or equal to 101.5 degrees Fahrenheit, and additional compatible Ebola Virus Disease symptoms. Initial Sepsis Screen: Does the patient meet any 2 criteria? HR > 90 bpm. Does the patient have a suspected source of infection? No. Patient's initial sepsis screen is negative. Risk Assessment: Do you want to hurt yourself or someone else? Unable to obtain. Onset of symptoms was November 26, 2020. 17:06 Acuity: [place] 2 aa5 17:06 Method Of Arrival: EMS: [facility] aa5 17:06 Care prior to arrival: Glucose check: 236. aa5 Triage Assessment: 17:10 General: Appears distressed, obese, Behavior is drowsy. Pain: Unable to use pain scale. bp Patient is disoriented. EENT: No deficits noted. Neuro: Level of Consciousness is lethargic, Oriented to person. Cardiovascular: Rhythm is sinus rhythm. Respiratory: No deficits noted. GI: Reports nausea, vomiting. : No signs and/or symptoms were reported regarding the genitourinary system. Derm: No deficits noted. Musculoskeletal: No deficits noted. Historical: - Allergies: 17:06 No Known Allergies; aa5 - PMHx: 17:06 Diabetes; aa5 - PSHx: 17:06 None; aa5 - Immunization history:: Adult Immunizations unknown. - Social history:: Patient/guardian denies using alcohol, street drugs, The patient lives with family, Smoking status: unknown. - Family history:: not pertinent, pertinent for. Screenin:10 Abuse screen: Denies threats or abuse. Denies injuries from another. Nutritional bp screening: No deficits noted. Tuberculosis screening: No symptoms or risk factors identified. Fall Risk None identified. Assessment: 17:10 General: SEE TRIAGE NOTE. bp 17:15 Reassessment: Pt to CT via stretcher . aa5 17:30 Reassessment: CEREBRAL HEMORRHAGE NOTED ON CT, PER RADIOLOGY. NO CHANGE IN PT NEURO bp STATUS. 17:40 Reassessment: Spoke to pt's son Jayro Moore and notified of need for transfer per aa5 Dr. Dhaliwal, pt's son agrees with POC.. 17:45 Reassessment: REPORT TO [facility]. ETA 20 MINUTES. bp 17:50 Neuro: Level of Consciousness is lethargic, Oriented to person. GI: Abdomen is bp non-distended. 18:00 Reassessment: REPORT TO CATALINA BOYKIN FOR [facility]. [facility] AT B/S FOR TRANSPORT. bp Vital Signs: 17:06 BP 210 / 121; Pulse 98; Resp 16 S; Temp 98.2(O); Pulse Ox 95% on R/A; aa5 17:30 BP 212 / 118; Pulse 101; Resp 35; Pulse Ox 93% ; bp 17:45 BP 184 / 104; Pulse 110; Resp 26; Pulse Ox 92% ; bp 18:00 BP 170 / 89; Pulse 114; Resp 26; Pulse Ox 95% ; bp ED Course: 17:06 Patient arrived in ED. am2 17:06 Arm band placed on Patient placed in an exam room, on a stretcher. aa5 17:07 Mary Carmen Dhaliwal MD is Attending Physician. ma2 17:10 Patient has correct armband on for positive identification. Placed in gown. Bed in low bp position. Call light in reach. Side rails up X2. traffic monitor specialist on. Pulse ox on. NIBP on. 17:12 Chris Mendoza, LUCRETIA is Primary Nurse. bp 17:15 Inserted saline lock: 18 gauge in left forearm, using aseptic technique. Blood aa5 collected. 17:15 Initial lab(s) drawn, by me, sent to lab. First set of blood cultures drawn by me. aa5 17:20 CT Head Brain wo Cont In Process Unspecified. EDMS 17:24 initiated a transfer with Jg from the [facility]. 17:32 Triage completed. aa5 17:37 administrative approval given by Clare Zepeda Rn/ patient has been accepted to [facility] 4 Bed 4/ Dr. Bass has accepted the patient in transfer/ report to be called to [phone]. 17:40 Inserted saline lock: 18 gauge in right forearm, using aseptic technique. aa5 17:41 Chest Single View XRAY In Process Unspecified. EDMS 17:49 Initial lab(s) drawn, by ED staff, sent to lab. First set of blood cultures drawn 5 Second set of blood cultures drawn Urine collected: clean catch specimen, clear, EKG done, by ED staff, reviewed by Mary Carmen Dhaliwal MD COVID swab sent to lab. Inserted saline lock:. 17:51 Glucose, Ancillary Testing Sent. mh5 17:51 Liver (Hepatic) Function Sent. 5 17:51 Lipase Sent. 5 17:51 Procalcitonin Sent. 5 17:52 CKMB Creatine Kinase MB Sent. 5 17:52 Creatine Phosphokinase Sent. mh5 17:52 Lactate Sent. mh5 17:52 Blood Culture Sent. mh5 17:52 Amylase Sent. 5 17:52 Basic Metabolic Panel Sent. 5 17:53 Blood Culture Adult (2) Sent. 5 17:53 CBC with Diff Sent. 5 17:53 Ckmb Sent. 5 17:53 CPK Sent. 5 17:54 Lactate Sent. 5 17:54 LFT's Sent. 5 17:54 Lipase Sent. 5 17:54 Procalcitonin Sent. 5 17:54 Protime (+inr) Sent. 5 17:54 Troponin (emerg Dept Use Only) Sent. 5 17:54 Urine Microscopic Only Sent. 5 17:55 Urine Dipstick-Ancillary Sent. 5 18:02 No provider procedures requiring assistance completed. Patient transferred, IV remains bp in place. Administered Medications: 17:30 Drug: Zofran (Ondansetron) 2 mg Route: IVP; Site: left forearm; bp 17:56 Follow up: Response: Nausea is decreased bp 17:30 Drug: niCARdipine (25mg/250ml) 5 mg/hr Route: IV; Rate: calculated rate; Site: left bp forearm; 18:03 Follow up: IV Status: Infusion continued upon transfer bp 17:35 Not Given (Physician Discretion): NS 0.9% (30 ml/kg) 30 ml/kg IV at bolus once; Sepsis aa5 Protocol 17:35 Not Given (Physician Discretion): Rocephin (cefTRIAXone) 1 grams IV at calculated rate aa5 once; Given slow IV push per pharmacy instructions 17:40 Drug: NS 0.9% 1000 ml Route: IV; Rate: 1000 ml; Site: right forearm; aa5 18:02 Follow up: IV Status: Infusion continued upon transfer bp Outcome: 17:29 ER care complete, transfer ordered by . ma2 18:01 [facility]red [facility] helicopter [facility]. bp 18:01 critical 18:01 Instructed on the need for transfer. 18:08 Patient left the ED. bp Signatures: Dispatcher [employer] EDMS Dorothy Augustine RN RN aa5 Martinez, Maria Gloria Mena Brian, RN RN bp Mary Carmen Dhaliwal MD MD ma2 Nichole Chen Corrections: (The following items were deleted from the chart) 17:58 17:43 Inserted saline lock: 18 gauge in right forearm, using aseptic technique. Siri aa5
--- NOTE | 2020-11-26 17:29 | EDPHYS ---
Physician Documentation [facility] Name: Fransico Cueva Age: 50 yrs Sex: Male : 1970 Arrival Date: 11/26/2020 Time: 17:06 Bed 4 Private MD: ED Physician Mary Carmen Dhaliwal HPI: 11/26 17:18 This 50 yrs old Male presents to ER via Unassigned with complaints of Blood ma2 Pressure Problem, Nausea/Vomiting. 17:18 The patient presents to the emergency department with nausea, vomiting. Onset: The ma2 symptoms/episode began/occurred gradually, 1 day(s) ago. Associated signs and symptoms: Pertinent negatives: belching, diarrhea, dysuria, flatulence. Severity of symptoms: At their worst the symptoms were moderate in the emergency department the symptoms are unchanged. The patient has not experienced similar symptoms in the past. has headache as well gradual moderate . Historical: - Allergies: 17:06 No Known Allergies; aa5 - PMHx: 17:06 Diabetes; aa5 - PSHx: 17:06 None; aa5 - Immunization history:: Adult Immunizations unknown. - Social history:: Patient/guardian denies using alcohol, street drugs, The patient lives with family, Smoking status: unknown. - Family history:: not pertinent, pertinent for. ROS: 17:18 Constitutional: Negative for fever, chills, and weight loss. ma2 17:18 All other systems are negative. Exam: 17:18 Constitutional: in distress, vomiting, oriented to person only Head/Face: ma2 Normocephalic, atraumatic. ENT: Nares patent. No nasal discharge, no septal abnormalities noted. Tympanic membranes are normal and external auditory canals are clear. Oropharynx with no redness, swelling, or masses, exudates, or evidence of obstruction, uvula midline. Mucous membranes moist. Neck: Trachea midline, no thyromegaly or masses palpated, and no cervical lymphadenopathy. Supple, full range of motion without nuchal rigidity, or vertebral point tenderness. No Meningismus. Chest/axilla: Normal chest wall appearance and motion. Nontender with no deformity. No lesions are appreciated. Cardiovascular: Regular rate and rhythm with a normal S1 and S2. No gallops, murmurs, or rubs. Normal PMI, no JVD. No pulse deficits. Respiratory: Lungs have equal breath sounds bilaterally, clear to auscultation and percussion. No rales, rhonchi or wheezes noted. No increased work of breathing, no retractions or nasal flaring. Abdomen/GI: Soft, non-tender, with normal bowel sounds. No distension or tympany. No guarding or rebound. No evidence of tenderness throughout. Skin: Warm, dry with normal turgor. Normal color with no rashes, no lesions, and no evidence of cellulitis. MS/ Extremity: Pulses equal, no cyanosis. Neurovascular intact. Full, normal range of motion. Neuro: Awake and alert, GCS 14, confused, moving all extremities, not cooperative w exam Vital Signs: 17:06 BP 210 / 121; Pulse 98; Resp 16 S; Temp 98.2(O); Pulse Ox 95% on R/A; aa5 17:30 BP 212 / 118; Pulse 101; Resp 35; Pulse Ox 93% ; bp 17:45 BP 184 / 104; Pulse 110; Resp 26; Pulse Ox 92% ; bp 18:00 BP 170 / 89; Pulse 114; Resp 26; Pulse Ox 95% ; bp MDM: 17:18 Differential diagnosis: gastritis, gastroenteritis, hypertensive encephalopathy vs va2 intracranial bleeding. 17:25 Data reviewed: vital signs, nurses notes. Counseling: I had a detailed discussion with felicita the patient and/or guardian regarding: the historical points, exam findings, and any diagnostic results supporting the discharge/admit diagnosis, the presence of at least one elevated blood pressure reading (>120/80) during this emergency department visit. Response to treatment: There is no appreciated change of the patient's symptoms at this time. ED course: patient has bilateral subarachnoid hemorrhage with elevated bp not taking blood thinner. will transfer for higher level of care as no neurosurgery availabel in our hospital . 17:29 Patient medically screened. ma2 11/26 17:08 Order name: Amylase, Serum va2 11/26 17:08 Order name: Basic Metabolic Panel va2 11/26 17:08 Order name: Blood Culture Adult (2) va2 11/26 17:08 Order name: CBC with Diff va2 11/26 17:08 Order name: Ckmb va2 11/26 17:08 Order name: CPK va2 11/26 17:08 Order name: Lactate ma2 11/26 17:08 Order name: LFT's ma2 11/26 17:08 Order name: Lipase ma2 11/26 17:08 Order name: Procalcitonin ma2 11/26 17:08 Order name: Protime (+inr) va2 11/26 17:08 Order name: Ptt, Activated ma2 11/26 17:08 Order name: Troponin (emerg Dept Use Only) ma2 11/26 17:08 Order name: Urine Microscopic Only ma2 11/26 17:08 Order name: Chest Single View XRAY ma2 11/26 17:09 Order name: Amylase EDMS 11/26 17:09 Order name: Basic Metabolic Panel EDMS 11/26 17:09 Order name: Blood Culture EDMS 11/26 17:09 Order name: CBC with Automated Diff; Complete Time: 17:30 EDMS 11/26 17:09 Order name: CKMB Creatine Kinase MB EDMS 11/26 17:09 Order name: Creatine Phosphokinase EDMS 11/26 17:09 Order name: Lactate EDMS 11/26 17:09 Order name: Liver (Hepatic) Function EDMS 11/26 17:09 Order name: Lipase EDMS 11/26 17:09 Order name: Procalcitonin EDMS 11/26 17:09 Order name: Protime (+INR) EDMS 11/26 17:42 Order name: Glucose, Ancillary Testing EDMS 11/26 17:50 Order name: Urine Dipstick-Ancillary EDMS 11/26 17:51 Order name: Urine Dipstick-Ancillary EDMS 11/26 17:08 Order name: Accucheck; Complete Time: 17:35 ma2 11/26 17:08 Order name: Cardiac monitoring; Complete Time: 17:22 ma2 11/26 17:08 Order name: EKG - Nurse/Tech; Complete Time: 17:53 ma2 11/26 17:08 Order name: IV Saline Lock - Large Bore; Complete Time: 17:22 ma2 11/26 17:08 Order name: Labs collected and sent; Complete Time: 17:22 ma2 11/26 17:08 Order name: O2 Per Protocol; Complete Time: 17:22 ma2 11/26 17:08 Order name: O2 Sat Monitoring; Complete Time: 17:22 ma2 11/26 17:08 Order name: Urine Dipstick-Ancillary (obtain specimen); Complete Time: 17:39 ma2 04 17:08 Order name: CT Head Brain wo Cont ma2 Administered Medications: 17:30 Drug: Zofran (Ondansetron) 2 mg Route: IVP; Site: left forearm; bp 17:56 Follow up: Response: Nausea is decreased bp 17:30 Drug: niCARdipine (25mg/250ml) 5 mg/hr Route: IV; Rate: calculated rate; Site: left bp forearm; 18:03 Follow up: IV Status: Infusion continued upon transfer bp 17:35 Not Given (Physician Discretion): NS 0.9% (30 ml/kg) 30 ml/kg IV at bolus once; Sepsis aa5 Protocol 17:35 Not Given (Physician Discretion): Rocephin (cefTRIAXone) 1 grams IV at calculated rate aa5 once; Given slow IV push per pharmacy instructions 17:40 Drug: NS 0.9% 1000 ml Route: IV; Rate: 1000 ml; Site: right forearm; aa5 18:02 Follow up: IV Status: Infusion continued upon transfer bp Disposition: 11/26/20 17:29 Transfer ordered to Other Acute Care Facility. Diagnosis is Nontraumatic subarachnoid hemorrhage, unspecified. - Reason for transfer: Higher level of care. - Accepting physician is Dr. Coyle. - Condition is Stable. - Problem is new. - Symptoms are unchanged. Signatures: Dispatcher [employer] [facility] Dorothy Augustine RN RN aa5 Chris Mendoza RN RN bp Mary Carmen Dhaliwal MD MD ma2 Corrections: (The following items were deleted from the chart) 17:31 17:29 11/26/2020 17:29 Transfer ordered to Other Acute Care Facility. Diagnosis is ma2 Nontraumatic subarachnoid hemorrhage, unspecified. Reason for transfer: Higher level of care. Accepting physician is O[facility]. Condition is Stable. Problem is new. Symptoms are unchanged. [facility] 17:51 17:09 CORONAVIRUS+MR.LAB.BRZ ordered. [facility] 18:08 17:31 11/26/2020 17:29 Transfer ordered to Other Acute Care Facility. Diagnosis is bp Nontraumatic subarachnoid hemorrhage, unspecified. Reason for transfer: Higher level of care. Accepting physician is Dr. Coyle. Condition is Stable. Problem is new. Symptoms are unchanged. ma2
--- NOTE | 2020-11-26 17:30 | RAD REPORT ---
EXAM DESCRIPTION: CT - Head Brain Wo Cont - 11/26/2020 5:21 pm CLINICAL HISTORY: Alteration of awareness/confusion COMPARISON: None TECHNIQUE: Computed axial tomography of the head was obtained. IV contrast was not requested. All CT scans are performed using dose optimization technique as appropriate and may include automated exposure control or mA/KV adjustment according to patient size. FINDINGS: Large amount of subarachnoid blood is present throughout the cervical of [place], sylvian f issures, sulci, interpedicular, prepontine and basilar cisterns bilaterally. The ventricles are normal in caliber. No extra-axial fluid collection is noted. . Fluid within the sinuses/ mastoids is not seen. IMPRESSION: Large amount of subarachnoid blood. 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 Perhaps anterior communicating artery Exam was discussed with Dr. Palomares in the emergency room at 5:20 p.m. November 26, 2020
[2020-11-26] MEDS ORDERED: ONDANSETRON 4 MG/2 ML VIAL ONE (17:41)
[2020-11-26] MEDS ORDERED: Nicardipine/NS 25 MG/250 ML KIT IV ONE (17:42)
[2020-11-26 17:50] LABS: Urine Blood 1+ (Negative); Urine Glucose 2+ (Negative); Urine Protein 3+ (Negative); Urine Specific Gravity 1.025 (1.005-1.030)
[2020-11-26] MEDS ORDERED: NA CHLORIDE 0.9% 1,000 ML ONE (17:54)
[2020-11-26 18:08] LABS: Urine Bacteria <20 /HPF (NONE SEEN); Urine RBC <5 /HPF (NONE SEEN)
[2020-11-26 18:13] LABS: Albumin 4.1 g/dL (3.4-5.0); Bilirubin Direct 0.1 mg/dL (0-0.2); Bilirubin Total 0.6 mg/dL (0.2-1.0); Troponin (Emerg Dept Use Only) 0.02 ng/mL (0.0-0.045)
[2020-11-26 18:18] LABS: Potassium 2.8 mmol/L (3.5-5.1)
--- NOTE | 2020-11-26 18:25 | RAD REPORT ---
EXAM DESCRIPTION: Kuldeep Single View11/26/2020 5:42 pm CLINICAL HISTORY: Congestion COMPARISON: 2017 FINDINGS: The lungs appear clear of acute infiltrate. The heart is probably normal size IMPRESSION: No acute abnormalities displayed
[2020-11-26 20:35] VITALS: TEMP 98.2
[2020-11-26 20:39] VITALS: BP 170/89; O2SAT 95
--- NOTE | 2020-11-28 08:58 | EKG ---
Test Date: 2020-11-26 Test Time: 17:33:02 Park Activities Coordinator: SHAWNA MEASUREMENT RESULTS: Intervals: Rate: 97 NM: 172 QRSD: 90 QT: 372 QTc: 472 [place]: P: 58 NM: 172 QRS: -30 T: 85 INTERPRETIVE STATEMENTS: Normal sinus rhythm Possible Left atrial enlargement Left axis deviation Nonspecific ST and T wave abnormality Prolonged QT Abnormal ECG Compared to ECG 03/04/2018 03:36:00 Left-axis deviation now present ST (T wave) deviation now present Prolonged QT interval now present Electronically Signed On 11-28-20 08:55:25 CDT by Yinka Mendiola
== END 2020-11-26 18:08 ==
LOC: ER 17:04
DX: I60.9 Nontraumatic subarachnoid hemorrhage, unspecified (principal); E11.9 Type 2 diabetes mellitus without complications
CPT/HCPCS: 36415; 70450; 71045; 80048; 80076; 81003; 81015; 82150; 82550; 82553; 82947; 83605; 83690; 84145; 84484; 85025; 85610; 85730; 87040; 93005; 96365; 96375; 99285; J2405; J7030; U0003